=== PATIENT | male | born 1990 | race Caucasian/White ===

== ENCOUNTER 2016-08-13 11:53 | Emergency (ER) | payer BC, OTHER ==
[2016-08-13] MEDS ORDERED: 0.9 % SODIUM CHLORIDE 1,000 ML IV ONE ×2 (12:03→12:04)
[2016-08-13] MEDS ORDERED: ONDANSETRON HCL/PF 4 MG/ 2ML VIAL IVP ONE ×2 (12:03→13:03)
[2016-08-13] MEDS ORDERED: ONDANSETRON HCL/PF 4 MG/ 2ML VIAL ONE (12:04)
--- NOTE | 2016-08-13 13:02 | ED Physician Documentation ---
Nausea/Vomiting/Diarrhea - HISTORIAN Historian: patient - HPI Stated Complaint: N/V/D Chief Complaint: Nausea,Vomiting,Diarrhea Onset: other (last night) Further Comments: yes (26 year old male patient presents with nausea, vomiting and generalized abdominal pain after eating Italian food last night. Denies fever or diarrhea.) - Associated Symptoms Vomiting: frequent Abdominal Pain: cramping, diffuse - ROS CONST: none CVS/RESP: denies: chest pain, shortness of breath, cough, dry cough, non- productive cough, productive cough, bloody cough, other GI/: dark urine EYES/ENT: none MS/SKIN/LYMPH: denies: joint pain, leg swelling, rash, swollen glands, ankle swelling, other NEURO/PSYCH: none - PAST HX Past History: none Allergies/Adverse Reactions: Allergies Allergy/AdvReac Type Severity Reaction Status Date / Time No Known Allergies Allergy Verified 08/13/16 12:41 Home Medications: Ambulatory Orders Medication Instructions Recorded Promethazine HCl [Phenergan] 25 mg PO Q6H PRN #12 tablet 08/13/16 - SOCIAL HX Smoking History: non-smoker - FAMILY HX Family History: none - VITAL SIGNS Vital Signs: Vital Signs Temp Pulse Resp BP Pulse Ox 99.1 F 98 H 16 125/80 97 08/13/16 13:34 08/13/16 13:34 08/13/16 13:34 08/13/16 13:34 08/13/16 13:34 - REVIEWED ASSESSMENTS Nursing Assessment Reviewed: Yes Vitals Reviewed: Yes Progress - Progress Progress: Patient continues to have mild nausea - repeated Zofran. Reviewed discharge instructions, patient verbalized understanding. ED Results Lab/Radiology - Orders Orders: ED Orders Category Date Time Status Place Saline Lock/IV NOW Care 08/13/16 12:03 Active 0.9 % Sodium Chloride [Normal Saline] 1,000 ml Med 08/13/16 12:04 Discontinued IV .STK-MED 0.9 % Sodium Chloride [Normal Saline] 1,000 ml Med 08/13/16 12:03 Discontinued IV NOW Ketorolac Tromethamine [Toradol] Med 08/13/16 13:03 Discontinued 30 mg IVP NOW ONE Ondansetron HCl/Pf [Zofran 4 mg/2 ml] Med 08/13/16 12:04 Discontinued 4 mg .ROUTE .STK-MED ONE Ondansetron HCl/Pf [Zofran 4 mg/2 ml] Med 08/13/16 12:03 Discontinued 4 mg IVP NOW ONE Ondansetron HCl/Pf [Zofran 4 mg/2 ml] Med 08/13/16 13:03 Discontinued 4 mg IVP NOW ONE Nausea Physical Exam - EXAM General Appearance: mild distress EENT: eye inspection normal, [place] Respiratory: no resp distress, chest non-tender, breath sounds normal CVS: reg rate & rhythm, heart sounds normal, equal pulses, no murmur, no gallop , PMI nml, no JVD, no friction rub, 24 Abdomen: no organomegaly, tenderness (generalized discomfort) Skin: normal color, warm/dry, NR, INT, PAL, DR Extremities: non-tender, normal range of motion, no evidence of injury, no edema , J, [employer] Neuro/Psych: oriented X3, CN's nml as tested, motor nml, sensation nml, mood/ affect nml Discharge Clincal Impression: Food poisoning Qualifiers: Encounter type: initial encounter Injury intent: accidental or unintentional Qualified Code(s): T62.91XA - Toxic effect of unspecified noxious substance eaten as food, accidental (unintentional), initial encounter Nausea & vomiting Qualifiers: Vomiting type: unspecified Vomiting Intractability: non-intractable Qualified Code(s): R11.2 - Nausea with vomiting, unspecified Prescriptions: Promethazine HCl [Phenergan] 25 mg PO Q6H PRN #12 tablet PRN Reason: Nausea / Vomiting Referrals: Primary Doctor,No [Primary Care Provider] - 2 Days Additional Instructions: Diet: Clear liquids Sprite/7-up Juices apple, white grape Gatorade/Powerade Jello Popsicles When tolerating clear liquids, advance to bland diet - such as crackers , rice, bananas or toast Return to the emergency department or call your doctor, if you are having severe abdominal pain, fever >101.0, or if there is blood in the vomit or diarrhea, or you cannot keep down liquids or solid food. Home Medications: Ambulatory Orders Promethazine HCl [Phenergan] 25 mg PO Q6H PRN #12 tablet 08/13/16 Condition: Stable Disposition: 01 HOME, SELF-CARE Decision to Admit: NO Decision Time: 12:59
[2016-08-13] MEDS ORDERED: KETOROLAC TROMETHAMINE 30 MG/1ML VIAL IVP ONE (13:03)
[2016-08-13 13:37] VITALS: BP 125/80
== END 2016-08-13 13:26 | disposition home or self-care (01) ==
LOC: ED 11:53
DX: T62.91XA Toxic effect of unspecified noxious substance eaten as food, accidental (unintentional), initial encounter (principal); R11.2 Nausea with vomiting, unspecified
CPT/HCPCS: J1885; J2405; J7030; 96361; 96374; 96375; 99284; S1016